=== PATIENT | male | born 1955 | race Caucasian/White ===

== ENCOUNTER → 2016-06-19 | Outpatient (CLI) | payer OTHER ==
[~2016-06-19] MED LIST: ADVAIR DISKUS 21 DSK INH; ALBUTEROL0.09 MG/A2 INH; LEVOFLOXACIN500 MG PO; LISINOPRIL5 MG PO; MEDROL DOSEPAK4 MG PO; PREDNISONE20 M1 PO; PRILOSEC40 MG PO; THIORIDAZINE H100 MG PO; VICODIN 5/500 505 MG PO; VISTARIL25 MG PO; XANAX0.5 MG PO; XANAX1 MG PO; ZITHROMAX250 MG PO; ZOLOFT50 MG PO
== END | disposition home or self-care (01) ==
LOC: US 17:45
DX: N32.89 Other specified disorders of bladder (principal)

== ENCOUNTER 2016-08-22 14:16 | Emergency (ER) | payer OTHER ==
[~2016-08-22] VITALS: Ht 165.1 cm; Wt 67.1 kg
[2016-08-22] MEDS ORDERED: COREG6.25 MG PO (14:23)
[2016-08-22 14:40] VITALS: BP 112/68
[2016-08-22 15:06] LABS: BASO # 0.1 10*3/uL (0.0-0.1); BASO % 0.6 % (0.0-1.0); EOS # 0.4 10*3/uL (0.0-0.4); EOS % 4.4 % (1.0-4.0); HEMATOCRIT 30.5 % (42.0-52.0); HEMOGLOBIN 9.9 g/dl (14.0-18.0); LYMPH # 1.8 10*3/uL (1.3-4.4); LYMPH % 20.6 % (27.0-41.0); MEAN CELL VOLUME 90.2 fl (80.0-94.0); MEAN CORPUSCULAR HGB 29.3 pg (27.0-31.0); MEAN CORPUSCULAR HGB CONC 32.5 g/dl (33.0-37.0); MEAN PLATELET VOLUME 8.9 fl (9.6-12.3); MONO # 0.9 10*3/uL (0.1-1.0); MONO % 10.2 % (3.0-9.0); NEUT # 5.5 10*3/uL (2.3-7.9); NEUT % 63.8 % (47.0-73.0); PLATELET COUNT AUTOMATED 488 10*3/uL (130-400); RED BLOOD COUNT 3.38 10*6/uL (4.50-5.90); RED CELL DISTRI WIDTH 13.6 % (0-14.5); WHITE BLOOD COUNT 8.6 10*3/uL (4.8-10.8)
[2016-08-22 15:13] LABS: ALBUMIN 2.7 gm/dl (3.1-4.5); ALKALINE PHOSPHATASE 71 U/L (45-117); BILIRUBIN, TOTAL 0.3 mg/dl (0.2-1.0); BUN 12 mg/dl (7-24); CARBON DIOXIDE 27 mmol/L (21-32); CHLORIDE 106 mmol/L (98-107); EST GLOM FILT AFRICAN AMERICAN > 60 ml/min; GLUCOSE 101 mg/dL (65-99); POTASSIUM 3.9 mmol/L (3.5-5.1); SGOT/AST 19 IU/L (3-35); SGPT/ALT 44 U/L (12-78); SODIUM 141 mmol/L (136-145); TOTAL PROTEIN 6.2 gm/dL (6.4-8.2)
[2016-08-22] MEDS ORDERED: CEPHALEXIN500 M1 PO (15:46)
[2016-08-22] MEDS ORDERED: NORCO 5-325 TA1 EACH PO (15:46)
== END 2016-08-22 15:52 | disposition home or self-care (01) ==
LOC: ED 14:16
PROVIDERS: Nurse Practitioner Family
DX: G89.18 Other acute postprocedural pain (principal); F17.200 Nicotine dependence, unspecified, uncomplicated; Z79.899 Other long term (current) drug therapy

== ENCOUNTER 2016-10-10 09:13 | Emergency (ER) | payer OTHER ==
[~2016-10-10] VITALS: Ht 180.3 cm; Wt 95.3 kg
[~2016-10-10 09:13] MED LIST changes: +CEPHALEXIN500 M1 PO; +COREG6.25 MG PO; +NORCO 5-325 TA1 EACH PO
[2016-10-10 09:20] VITALS: BP 150/103
[2016-10-10] MEDS ORDERED: NAPROSYN500 MG PO (11:10)
[2016-10-10] MEDS ORDERED: PREDNISONE20 M1 PO (11:10)
[2016-10-10] MEDS ORDERED: PROVENTIL0.09 MG/A1 INH (11:10)
[2016-10-10] MEDS ORDERED: VIBRAMYCIN100 MG PO (11:10)
== END 2016-10-10 11:17 | disposition home or self-care (01) ==
LOC: ED 09:13
DX: J40 Bronchitis, not specified as acute or chronic (principal); R09.1 Pleurisy; J44.9 Chronic obstructive pulmonary disease, unspecified

== ENCOUNTER 2016-12-16 16:52 | Emergency (ER) | payer OTHER ==
[~2016-12-16] VITALS: Wt 81.2 kg
[~2016-12-16 16:52] MED LIST changes: +NAPROSYN500 MG PO; +PROVENTIL0.09 MG/A1 INH; +VIBRAMYCIN100 MG PO
[2016-12-16 17:22] VITALS: BP 114/56
[2016-12-16] MEDS ORDERED: XARE20MG PO (17:23)
[2016-12-16] MEDS ORDERED: ATORVASTATIN CA10 M1 PO (17:24)
[2016-12-16 17:40] LABS: BILIRUBIN NEGATIVE (NEGATIVE); BLOOD NEGATIVE (NEGATIVE); CLARITY CLEAR (CLEAR); COLOR YELLOW (YELLOW); GLUCOSE NEGATIVE (NEGATIVE); KETONE TRACE (NEGATIVE); LEUKO ESTERASE NEGATIVE (NEGATIVE); NITRITE NEGATIVE (NEGATIVE); PH 5.5 (5.0-9.0); SPECIFIC GRAVITY 1.025 (1.005-1.030); UROBILINOGEN 0.2 E.U./dl (0.2-1.0)
[2016-12-16 17:53] LABS: RBC 0-2 rbc/hpf (0-2); WBC 0-2 wbc/hpf (0-5)
[2016-12-16 17:53] LABS: BASO % 0.4 % (0.0-1.0); EOS # 0.4 10*3/uL (0.0-0.4); EOS % 5.7 % (1.0-4.0); HEMOGLOBIN 13.1 g/dl (14.0-18.0); LYMPH % 27.1 % (27.0-41.0); MEAN CELL VOLUME 89.9 fl (80.0-94.0); MEAN CORPUSCULAR HGB 29.4 pg (27.0-31.0); MEAN CORPUSCULAR HGB CONC 32.8 g/dl (33.0-37.0); MEAN PLATELET VOLUME 9.4 fl (9.6-12.3); MONO % 13.2 % (3.0-9.0); NEUT # 3.9 10*3/uL (2.3-7.9); NEUT % 53.3 % (47.0-73.0); PLATELET COUNT AUTOMATED 277 10*3/uL (130-400); RED BLOOD COUNT 4.45 10*6/uL (4.50-5.90); RED CELL DISTRI WIDTH 13.9 % (0-14.5); WHITE BLOOD COUNT 7.3 10*3/uL (4.8-10.8)
[2016-12-16 18:12] LABS: ALBUMIN 3.5 gm/dl (3.1-4.5); ALKALINE PHOSPHATASE 97 U/L (45-117); BUN 15 mg/dl (7-24); CHLORIDE 107 mmol/L (98-107); CREATININE 1.45 mg/dL (0.70-1.30); POTASSIUM 3.7 mmol/L (3.5-5.1); SGOT/AST 25 IU/L (3-35); SGPT/ALT 49 U/L (12-78); SODIUM 140 mmol/L (136-145); TOTAL PROTEIN 6.9 gm/dL (6.4-8.2)
[2016-12-16 19:19] LABS: URINE AMPHETAMINES < 1000 (1000ng/ml); URINE BARBITURATES < 200 (200ng/ml); URINE BENZODIAZEPINES < 200 (200ng/ml); URINE CANNABINOIDS (THC) < 50 (50ng/ml); URINE COCAINE < 300 (300ng/ml); URINE METHADONE < 300 (300ng/ml); URINE OPIATES < 300 (300ng/ml)
[2016-12-16 19:23] LABS: URINE PHENCYCLIDINE < 25 (25ng/ml)
== END 2016-12-16 19:33 | disposition home or self-care (01) ==
LOC: ED 16:52
PROVIDERS: Emergency Medicine; Student in an Organized Health Care Education/Training Program
DX: M54.5 Low back pain (principal); R10.30 Lower abdominal pain, unspecified; F14.10 Cocaine abuse, uncomplicated; Z98.890 Other specified postprocedural states; Z79.899 Other long term (current) drug therapy

== ENCOUNTER 2017-01-23 11:19 | Emergency (ER) | payer OTHER ==
[~2017-01-23] VITALS: Ht 187.9 cm; Wt 81.6 kg
[~2017-01-23 11:19] MED LIST changes: +ATORVASTATIN CA10 M1 PO; +XARE20MG PO
[2017-01-23 11:26] VITALS: BP 173/92
[2017-01-23] MEDS ORDERED: Wellbutrin Sr100 MG PO (12:05)
== END 2017-01-23 12:10 | disposition home or self-care (01) ==
LOC: ED 11:19
DX: R03.0 Elevated blood-pressure reading, without diagnosis of hypertension (principal); F17.200 Nicotine dependence, unspecified, uncomplicated; Z79.899 Other long term (current) drug therapy

== ENCOUNTER 2017-05-26 15:06 | Emergency (ER) | payer OTHER ==
[~2017-05-26] VITALS: Ht 182.8 cm; Wt 77.1 kg
[~2017-05-26 15:06] MED LIST changes: +Wellbutrin Sr100 MG PO
[2017-05-26 15:29] VITALS: BP 138/86
== END 2017-05-26 15:58 | disposition home or self-care (01) ==
LOC: ED 15:06
PROVIDERS: Physician Assistant
DX: Z51.81 Encounter for therapeutic drug level monitoring (principal); Z79.899 Other long term (current) drug therapy

== ENCOUNTER 2017-05-31 14:14 | Emergency (ER) | payer OTHER ==
[~2017-05-31] VITALS: Ht 180.3 cm; Wt 90.7 kg
[2017-05-31 15:01] LABS: BASO % 0.3 % (0.0-1.0); EOS # 0.2 10*3/uL (0.0-0.4); EOS % 2.8 % (1.0-4.0); HEMATOCRIT 41.9 % (42.0-52.0); HEMOGLOBIN 14.2 g/dl (14.0-18.0); LYMPH # 1.8 10*3/uL (1.3-4.4); LYMPH % 28.7 % (27.0-41.0); MEAN CELL VOLUME 89.3 fl (80.0-94.0); MEAN CORPUSCULAR HGB 30.3 pg (27.0-31.0); MEAN CORPUSCULAR HGB CONC 33.9 g/dl (33.0-37.0); MEAN PLATELET VOLUME 9.5 fl (9.6-12.3); MONO % 15.5 % (3.0-9.0); NEUT # 3.2 10*3/uL (2.3-7.9); NEUT % 52.5 % (47.0-73.0); PLATELET COUNT AUTOMATED 264 10*3/uL (130-400); RED BLOOD COUNT 4.69 10*6/uL (4.50-5.90); RED CELL DISTRI WIDTH 14.5 % (0-14.5); WHITE BLOOD COUNT 6.1 10*3/uL (4.8-10.8)
[2017-05-31 15:05] VITALS: BP 154/95
[2017-05-31 15:11] LABS: ACT PARTIAL THROMBO TIME 26.3 SECONDS (20.8-31.5)
[2017-05-31 15:15] LABS: ALBUMIN 3.8 gm/dl (3.1-4.5); ALKALINE PHOSPHATASE 113 U/L (45-117); BUN 20 mg/dl (7-24); CHLORIDE 107 mmol/L (98-107); CREATININE 1.37 mg/dL (0.70-1.30); SGOT/AST 23 IU/L (3-35); SGPT/ALT 43 U/L (12-78); SODIUM 139 mmol/L (136-145); TOTAL PROTEIN 7.5 gm/dL (6.4-8.2)
[2017-05-31] MEDS ORDERED: TESSALON PERLE100 MG PO (16:24)
== END 2017-05-31 16:27 | disposition home or self-care (01) ==
LOC: ED 14:14
PROVIDERS: Emergency Medicine
DX: R07.89 Other chest pain (principal); F41.9 Anxiety disorder, unspecified; I10 Essential (primary) hypertension; J44.9 Chronic obstructive pulmonary disease, unspecified; F14.10 Cocaine abuse, uncomplicated; Z98.890 Other specified postprocedural states; Z79.899 Other long term (current) drug therapy

== ENCOUNTER 2017-07-29 10:57 | Emergency (ER) | payer OTHER ==
[~2017-07-29] VITALS: Ht 187.9 cm; Wt 85.7 kg
[2017-07-29 10:57] VITALS: BP 147/94
[~2017-07-29 10:57] MED LIST changes: +TESSALON PERLE100 MG PO
[2017-07-29] MEDS ORDERED: NEURONTIN100 MG PO (12:33)
[2017-07-29] MEDS ORDERED: VALTREX1000 MG PO (12:33)
== END 2017-07-29 13:10 | disposition home or self-care (01) ==
LOC: ED 10:57
DX: B02.30 Zoster ocular disease, unspecified (principal); Z79.899 Other long term (current) drug therapy; Z98.890 Other specified postprocedural states

== ENCOUNTER 2017-08-01 11:24 | Emergency (ER) | payer OTHER ==
[~2017-08-01 11:24] MED LIST changes: +NEURONTIN100 MG PO; +VALTREX1000 MG PO
[2017-08-01 11:28] VITALS: BP 115/71
== END 2017-08-01 12:04 | disposition home or self-care (01) ==
LOC: ED 11:24
DX: B02.30 Zoster ocular disease, unspecified (principal); J44.1 Chronic obstructive pulmonary disease with (acute) exacerbation; F41.9 Anxiety disorder, unspecified; F17.200 Nicotine dependence, unspecified, uncomplicated; Z79.899 Other long term (current) drug therapy

== ENCOUNTER 2017-09-10 21:35 | Emergency (ER) | payer OTHER ==
[~2017-09-10] VITALS: Ht 185.4 cm; Wt 81.6 kg
[2017-09-10 21:38] VITALS: BP 143/97
[2017-09-10] MEDS ORDERED: XARE20MG PO (22:22)
[2017-09-10] MEDS ORDERED: LISINOPRIL2.5 MG PO (22:22)
[2017-09-10] MEDS ORDERED: PREDNISONE20 M1 PO (22:22)
== END 2017-09-10 22:55 | disposition home or self-care (01) ==
LOC: ED 21:35
DX: J44.1 Chronic obstructive pulmonary disease with (acute) exacerbation (principal); F17.200 Nicotine dependence, unspecified, uncomplicated; Z76.0 Encounter for issue of repeat prescription; Z79.899 Other long term (current) drug therapy; Z98.890 Other specified postprocedural states; Z79.01 Long term (current) use of anticoagulants

== ENCOUNTER 2017-10-31 11:07 | Emergency (ER) | payer OTHER ==
[~2017-10-31] VITALS: Ht 172.7 cm; Wt 95.3 kg
[~2017-10-31 11:07] MED LIST changes: +LISINOPRIL2.5 MG PO
[2017-10-31] MEDS ORDERED: NAPROSYN500 MG PO (11:21)
[2017-10-31 12:26] VITALS: BP 132/74
== END 2017-10-31 12:37 | disposition home or self-care (01) ==
LOC: ED 11:07
DX: G89.29 Other chronic pain (principal); M25.562 Pain in left knee; R03.0 Elevated blood-pressure reading, without diagnosis of hypertension; Z79.899 Other long term (current) drug therapy; Z98.890 Other specified postprocedural states

== ENCOUNTER 2017-11-30 12:12 | Emergency (ER) | payer OTHER ==
[~2017-11-30] VITALS: Ht 187.9 cm; Wt 83.9 kg
[~2017-11-30 12:12] MED LIST changes: +BUPROPION HCL150 M3 PO; +PROVENTIL HFA6.7 GM PO; +VENTOLIN 02.5 MG/3 M INH; +XARELTO20 M1 PO
[2017-11-30 12:15] VITALS: BP 112/78
[2017-11-30] MEDS ORDERED: PREDNISONE10 MG PO (12:49)
[2017-11-30] MEDS ORDERED: ROBITUSSIN5 ML PO (12:49)
[2017-11-30] MEDS ORDERED: FLONASE ALLERG9.9 ML NAS (12:49)
[2017-11-30] MEDS ORDERED: CLARITIN10 MG PO (12:49)
[2017-11-30 12:55] LABS: BASO % 0.4 % (0.0-1.0); EOS # 0.4 10*3/uL (0.0-0.4); EOS % 4.1 % (1.0-4.0); HEMATOCRIT 43.6 % (42.0-52.0); HEMOGLOBIN 14.6 g/dl (14.0-18.0); LYMPH # 1.2 10*3/uL (1.3-4.4); LYMPH % 13.6 % (27.0-41.0); MEAN CELL VOLUME 88.6 fl (80.0-94.0); MEAN CORPUSCULAR HGB 29.7 pg (27.0-31.0); MEAN CORPUSCULAR HGB CONC 33.5 g/dl (33.0-37.0); MEAN PLATELET VOLUME 9.5 fl (9.6-12.3); MONO # 0.9 10*3/uL (0.1-1.0); MONO % 10.4 % (3.0-9.0); NEUT # 6.1 10*3/uL (2.3-7.9); NEUT % 71.1 % (47.0-73.0); PLATELET COUNT AUTOMATED 253 10*3/uL (130-400); RED BLOOD COUNT 4.92 10*6/uL (4.50-5.90); RED CELL DISTRI WIDTH 13.7 % (0-14.5); WHITE BLOOD COUNT 8.5 10*3/uL (4.8-10.8)
[2017-11-30 13:12] LABS: ALBUMIN 3.6 gm/dl (3.1-4.5); CREATININE 1.48 mg/dL (0.70-1.30); POTASSIUM 4.1 mmol/L (3.5-5.1); TOTAL PROTEIN 7.3 gm/dL (6.4-8.2)
[2017-12-04] MEDS ORDERED: CYCLOBENZAPRINE10 MG PO (20:28)
[2017-12-04] MEDS ORDERED: NAPROSYN500 MG PO (20:28)
== END 2017-11-30 13:30 | disposition home or self-care (01) ==
LOC: ED 12:12
PROVIDERS: Nurse Practitioner Family
DX: J20.9 Acute bronchitis, unspecified (principal); E11.22 Type 2 diabetes mellitus with diabetic chronic kidney disease; I12.9 Hypertensive chronic kidney disease with stage 1 through stage 4 chronic kidney disease, or unspecified chronic kidney disease; N18.3 Chronic kidney disease, stage 3 (moderate); E78.5 Hyperlipidemia, unspecified; J44.9 Chronic obstructive pulmonary disease, unspecified; F17.200 Nicotine dependence, unspecified, uncomplicated; Z79.899 Other long term (current) drug therapy

== ENCOUNTER 2018-01-06 18:47 | Emergency (ER) | payer OTHER ==
[~2018-01-06] VITALS: Ht 185.4 cm; Wt 82.6 kg
[~2018-01-06 18:47] MED LIST changes: +CLARITIN10 MG PO; +CYCLOBENZAPRINE10 MG PO; +FLONASE ALLERG9.9 ML NAS; +PREDNISONE10 MG PO; +ROBITUSSIN5 ML PO
[2018-01-06 18:48] VITALS: BP 146/85
== END 2018-01-06 19:11 | disposition home or self-care (01) ==
LOC: ED 18:47
DX: D68.8 Other specified coagulation defects (principal); Z76.0 Encounter for issue of repeat prescription; Z79.899 Other long term (current) drug therapy

== ENCOUNTER 2018-04-26 19:57 | Emergency (ER) | payer OTHER ==
[~2018-04-26] VITALS: Ht 187.9 cm; Wt 81.6 kg
--- NOTE | ~2018-04-26 | EKG ---
[place], [place] ELECTROCARDIOGRAM REPORT NAME: LUH CONWAY UNIT #: [id number] ROOM: DOCTOR: EPIPHANY DRAFT REPORT BIRTHDATE: [birth year] [facility] Test Date: 2018-04-26 Test Time: 21:04:21 Pat Name: LUH CONWAY Department: Room: Gender: M Head Of Strategy: Yasmine Pierce : 1955 Requested By: OUSMANE DENNY Order Number: [id number] Reading MD: Min Peter MD Measurements Intervals [place] Rate: 69 P: 77 DE: 138 QRS: 76 QRSD: 85 T: 66 QT: 415 QTc: 445 Interpretive Statements Sinus rhythm Baseline wander in lead(s) V6 Compared to ECG 11/09/2017 01:45:58 No significant changes Electronically Signed On 04-28-2018 8:21:42 PST by iMn Peter MD CM:EKGRPT:ELECTROCARDIOGRAM REPORT 03 0821 OUSMANE GONSALES DRAFT REPORT OUSMANE DENNY DO
[2018-04-26 20:46] LABS: BASO % 0.5 % (0.0-1.0); EOS # 0.4 10*3/uL (0.0-0.4); EOS % 4.9 % (1.0-4.0); HEMATOCRIT 41.9 % (42.0-52.0); HEMOGLOBIN 14.2 g/dl (14.0-18.0); LYMPH # 2.4 10*3/uL (1.3-4.4); LYMPH % 29.1 % (27.0-41.0); MEAN CELL VOLUME 90.1 fl (80.0-94.0); MEAN CORPUSCULAR HGB 30.5 pg (27.0-31.0); MEAN CORPUSCULAR HGB CONC 33.9 g/dl (33.0-37.0); MEAN PLATELET VOLUME 9.7 fl (9.6-12.3); MONO # 0.9 10*3/uL (0.1-1.0); MONO % 11.6 % (3.0-9.0); NEUT # 4.4 10*3/uL (2.3-7.9); NEUT % 53.8 % (47.0-73.0); PLATELET COUNT AUTOMATED 289 10*3/uL (130-400); RED BLOOD COUNT 4.65 10*6/uL (4.50-5.90); RED CELL DISTRI WIDTH 13.6 % (0-14.5); WHITE BLOOD COUNT 8.1 10*3/uL (4.8-10.8)
[2018-04-26 21:08] LABS: ALBUMIN 3.6 gm/dl (3.1-4.5); ALKALINE PHOSPHATASE 106 U/L (45-117); BUN 19 mg/dl (7-24); CHLORIDE 108 mmol/L (98-107); CREATININE 1.35 mg/dL (0.70-1.30); POTASSIUM 3.8 mmol/L (3.5-5.1); SGOT/AST 21 IU/L (3-35); SGPT/ALT 38 U/L (12-78); SODIUM 141 mmol/L (136-145); TOTAL PROTEIN 7.3 gm/dL (6.4-8.2)
[2018-04-26 21:10] LABS: TROPONIN I < 0.015 ng/ml (<0.045)
[2018-04-26 22:02] LABS: BILIRUBIN NEGATIVE (NEGATIVE); BLOOD NEGATIVE (NEGATIVE); CLARITY CLEAR (CLEAR); COLOR YELLOW (YELLOW); GLUCOSE NEGATIVE (NEGATIVE); KETONE NEGATIVE (NEGATIVE); LEUKO ESTERASE NEGATIVE (NEGATIVE); NITRITE NEGATIVE (NEGATIVE); SPECIFIC GRAVITY <= 1.005 (1.005-1.030); UROBILINOGEN 0.2 E.U./dl (0.2-1.0)
[2018-04-26 22:17] LABS: RBC 0-2 rbc/hpf (0-2)
[2018-04-26 22:18] LABS: BACTERIA TRACE; EPITHELIAL CELLS 0-2; WBC 0-2 wbc/hpf (0-5)
[2018-04-26 22:59] VITALS: BP 148/86
[2018-09-15] MEDS ORDERED: FINASTERIDE5 M1 PO (22:45)
[2018-09-15] MEDS ORDERED: TAMSULOSIN HCL0.4 MG PO (22:50)
[2018-09-15] MEDS ORDERED: LOSARTAN POTASS25 M1 PO (22:52)
[2018-09-15] MEDS ORDERED: WELLBUTRIN XL300 MG PO (22:53)
[2018-09-15] MEDS ORDERED: Percocet 325 MG1 TAB PO (22:59)
[2018-09-15] MEDS ORDERED: OXYBUTYNIN5 MG PO (23:02)
[2018-09-15] MEDS ORDERED: PACERONE200 MG PO (23:03)
[2018-09-15] MEDS ORDERED: 'XANAX1 MG PO (23:04)
[2018-09-17] MEDS ORDERED: MUCINEX ER600 MG PO (12:04)
[2018-09-17] MEDS ORDERED: PREDNISONE10 MG PO (12:04)
[2018-09-17] MEDS ORDERED: LEVOFLOXACIN500 MG PO (12:04)
[2018-09-17] MEDS ORDERED: NICODERM T (13:32)
[2018-09-18] MEDS ORDERED: PREDNISONE20 M1 PO (08:58)
== END 2018-04-26 23:08 | disposition left against medical advice (07) ==
LOC: ED 19:57
PROVIDERS: Emergency Medicine
DX: G45.9 Transient cerebral ischemic attack, unspecified (principal); E11.22 Type 2 diabetes mellitus with diabetic chronic kidney disease; I12.9 Hypertensive chronic kidney disease with stage 1 through stage 4 chronic kidney disease, or unspecified chronic kidney disease; N18.3 Chronic kidney disease, stage 3 (moderate); J44.9 Chronic obstructive pulmonary disease, unspecified; E78.1 Pure hyperglyceridemia; F17.210 Nicotine dependence, cigarettes, uncomplicated; Z86.73 Personal history of transient ischemic attack (TIA), and cerebral infarction without residual deficits; Z79.899 Other long term (current) drug therapy

== ENCOUNTER → 2018-07-16 | Outpatient (CLI) | payer OTHER ==
[~2018-07-16] MED LIST changes: +'XANAX1 MG PO; +AUGMENTIN 875-875 MG PO; +BREO ELLIPTA 21 EACH INH; +DOXYCYCLINE100 MG PO; +FINASTERIDE5 M1 PO; +Ipratropium Brom3 ML NEB; +LOSARTAN POTAS100 M1 PO; +LOSARTAN POTASS25 M1 PO; +MINIPRESS1 MG PO; +MUCINEX ER600 MG PO; +NICODERM T; +OXYBUTYNIN5 MG PO; +PACERONE200 MG PO; +Percocet 325 MG1 TAB PO; +TAMSULOSIN HCL0.4 MG PO; +TESSALON PERLE100 M1 PO; +TRAZODONE50 MG PO; +WELLBUTRIN XL300 MG PO
== END | disposition home or self-care (01) ==
LOC: NM 09:52
DX: J43.9 Emphysema, unspecified (principal); C61 Malignant neoplasm of prostate; M17.12 Unilateral primary osteoarthritis, left knee; I10 Essential (primary) hypertension; F17.200 Nicotine dependence, unspecified, uncomplicated

== ENCOUNTER 2018-09-14 20:19 | Emergency (ER) | payer OTHER ==
[~2018-09-14] VITALS: Ht 185.4 cm; Wt 81.6 kg
[~2018-09-14 20:19] MED LIST changes: -'XANAX1 MG PO; -AUGMENTIN 875-875 MG PO; -BREO ELLIPTA 21 EACH INH; -DOXYCYCLINE100 MG PO; -FINASTERIDE5 M1 PO; -Ipratropium Brom3 ML NEB; -LOSARTAN POTAS100 M1 PO; -LOSARTAN POTASS25 M1 PO; -MINIPRESS1 MG PO; -MUCINEX ER600 MG PO; -NICODERM T; -OXYBUTYNIN5 MG PO; -PACERONE200 MG PO; -Percocet 325 MG1 TAB PO; -TAMSULOSIN HCL0.4 MG PO; -TESSALON PERLE100 M1 PO; -TRAZODONE50 MG PO; -WELLBUTRIN XL300 MG PO
[2018-09-14 20:20] VITALS: BP 118/69
[2018-09-15] MEDS ORDERED: FINASTERIDE5 M1 PO (22:45)
[2018-09-15] MEDS ORDERED: TAMSULOSIN HCL0.4 MG PO (22:50)
[2018-09-15] MEDS ORDERED: LOSARTAN POTASS25 M1 PO (22:52)
[2018-09-15] MEDS ORDERED: WELLBUTRIN XL300 MG PO (22:53)
[2018-09-15] MEDS ORDERED: Percocet 325 MG1 TAB PO (22:59)
[2018-09-15] MEDS ORDERED: OXYBUTYNIN5 MG PO (23:02)
[2018-09-15] MEDS ORDERED: PACERONE200 MG PO (23:03)
[2018-09-15] MEDS ORDERED: 'XANAX1 MG PO (23:04)
[2018-09-17] MEDS ORDERED: MUCINEX ER600 MG PO (12:04)
[2018-09-17] MEDS ORDERED: PREDNISONE10 MG PO (12:04)
[2018-09-17] MEDS ORDERED: LEVOFLOXACIN500 MG PO (12:04)
[2018-09-17] MEDS ORDERED: NICODERM T (13:32)
[2018-09-18] MEDS ORDERED: PREDNISONE20 M1 PO (08:58)
== END 2018-09-14 20:45 | disposition home or self-care (01) ==
LOC: ED 20:19
DX: T83.038A Leakage of other urinary catheter, initial encounter (principal); Z79.899 Other long term (current) drug therapy; Y84.6 Urinary catheterization as the cause of abnormal reaction of the patient, or of later complication, without mention of misadventure at the time of the procedure; Y92.89 Other specified places as the place of occurrence of the external cause

== ENCOUNTER 2018-10-17 10:35 | Inpatient (IN) | payer OTHER ==
[~2018-10-17] VITALS: Ht 185.4 cm; Wt 83.5 kg
[2018-10-17] VITALS (7 sets, daily range): BP systolic 106–133; BP diastolic 59–78
--- NOTE | ~2018-10-17 | EKG ---
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
--- NOTE | ~2018-10-17 | EKG ---
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
--- NOTE | ~2018-10-17 | EKG ---
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
[~2018-10-17 10:35] MED LIST changes: +'XANAX1 MG PO; +FINASTERIDE5 M1 PO; +LOSARTAN POTASS25 M1 PO; +MUCINEX ER600 MG PO; +NICODERM T; +OXYBUTYNIN5 MG PO; +PACERONE200 MG PO; +Percocet 325 MG1 TAB PO; +TAMSULOSIN HCL0.4 MG PO; +WELLBUTRIN XL300 MG PO
[2018-10-17 10:53] LABS: BASO % 0.3 % (0.0-1.0); EOS # 0.1 10*3/uL (0.0-0.4); EOS % 0.8 % (1.0-4.0); HEMATOCRIT 39.6 % (42.0-52.0); HEMOGLOBIN 13.1 g/dl (14.0-18.0); LYMPH # 1.3 10*3/uL (1.3-4.4); LYMPH % 11.7 % (27.0-41.0); MEAN CELL VOLUME 91.7 fl (80.0-94.0); MEAN CORPUSCULAR HGB 30.3 pg (27.0-31.0); MEAN CORPUSCULAR HGB CONC 33.1 g/dl (33.0-37.0); MEAN PLATELET VOLUME 9.6 fl (9.6-12.3); MONO # 0.8 10*3/uL (0.1-1.0); MONO % 6.8 % (3.0-9.0); NEUT # 8.9 10*3/uL (2.3-7.9); NEUT % 80.1 % (47.0-73.0); PLATELET COUNT AUTOMATED 270 10*3/uL (130-400); RED BLOOD COUNT 4.32 10*6/uL (4.50-5.90); RED CELL DISTRI WIDTH 13.9 % (0-14.5); WHITE BLOOD COUNT 11.1 10*3/uL (4.8-10.8)
[2018-10-17 11:06] LABS: ACT PARTIAL THROMBO TIME 30.6 SECONDS (20.0-32.1)
[2018-10-17 11:09] LABS: ALBUMIN 3.5 gm/dl (3.1-4.5); ALKALINE PHOSPHATASE 100 U/L (45-117); BUN 14 mg/dl (7-24); CHLORIDE 109 mmol/L (98-107); CREATININE 1.38 mg/dL (0.70-1.30); POTASSIUM 3.9 mmol/L (3.5-5.1); SGOT/AST 25 IU/L (3-35); SGPT/ALT 34 U/L (12-78); SODIUM 138 mmol/L (136-145); TOTAL PROTEIN 7.1 gm/dL (6.4-8.2)
[2018-10-17 11:10] LABS: TROPONIN I < 0.015 ng/ml (<0.045)
--- NOTE | 2018-10-17 11:40 | NUR ---
ATTEMPTED TO CALL PT;S WIFR PER PT REQUEST @ [phone],NO ANSWER AND PT NOTIFIED.
--- NOTE | 2018-10-17 13:33 | NUR ---
A 63, admitted to , under the services of MARIAH Houser MD with a diagnosis of COPD EXACERBATION. Chief complaint is SOB. Patient arrived via bed from ER. Monitor applied. Initial assessment completed. Vital signs taken and recorded. MARIAH HOUSER MD notified of admission to the unit. Orders received. See assessment for past medical history, medications and allergies. Patient and/or family oriented to unit. [facility] visitation policy reviewed. Clothing/patient valuable form completed. LISSA HAMMOND
[2018-10-17] MEDS ORDERED: MINIPRESS1 MG PO (13:43)
--- NOTE | 2018-10-17 19:39 | NUR ---
24 HR chart check completed.
--- NOTE | 2018-10-17 21:00 | NUR ---
RESTING IN BED TALKING ON PHONE. RESPIRATIONS EASY. LUNGS DIMINISHED WITH COARSE EXP WHEEZES. HARSH NON-PROD COUGH NOTED. CALL LIGHT WITHIN REACH. NO VOICED COMPLAINTS
--- NOTE | 2018-10-17 21:30 | NUR ---
ROUTINE ATIVAN ADMINISTERED TO ASSIST WITH ANXIETY
[2018-10-18] VITALS: BP 114/67
--- NOTE | 2018-10-18 | NUR ---
SLEEPING. NO S/S DISTRESS. RESPIRATIONS EASY. VSS. CALL LIGHT WITHIN REACH
--- NOTE | 2018-10-18 06:00 | NUR ---
slept throughout night with no distress noted. respirations easy. call light within reach. no voiced complaints this shift
[2018-10-18 06:25] LABS: HEMATOCRIT 37.6 % (42.0-52.0); HEMOGLOBIN 12.6 g/dl (14.0-18.0); MEAN CELL VOLUME 90.4 fl (80.0-94.0); MEAN CORPUSCULAR HGB 30.3 pg (27.0-31.0); MEAN CORPUSCULAR HGB CONC 33.5 g/dl (33.0-37.0); MEAN PLATELET VOLUME 10.1 fl (9.6-12.3); PLATELET COUNT AUTOMATED 261 10*3/uL (130-400); RED BLOOD COUNT 4.16 10*6/uL (4.50-5.90); RED CELL DISTRI WIDTH 13.9 % (0-14.5); WHITE BLOOD COUNT 15.8 10*3/uL (4.8-10.8)
[2018-10-18 06:52] LABS: ALKALINE PHOSPHATASE 110 U/L (45-117); CHLORIDE 111 mmol/L (98-107); CREATININE 1.43 mg/dL (0.70-1.30); POTASSIUM 3.5 mmol/L (3.5-5.1); SGOT/AST 15 IU/L (3-35); SGPT/ALT 27 U/L (12-78); SODIUM 143 mmol/L (136-145); TOTAL PROTEIN 6.6 gm/dL (6.4-8.2)
[2018-10-18 06:56] LABS: PLASMA CELL 1 % (0-0); PLATELET SUFFICIENCY NORMAL (NORMAL); SCHISTOCYTES FEW; TOTAL CELLS COUNTED 100 #CELLS
[2018-10-18 06:58] LABS: BUN 25 mg/dl (7-24)
[2018-10-18 08:00] VITALS: BP 104/64
--- NOTE | 2018-10-18 08:00 | NUR ---
PT RESTING IN BED. NO DISTRESS NOTED. WILL MONITOR
--- NOTE | 2018-10-18 08:41 | NUR ---
CURTAIN DRIER spoke with patient about notation of him being "kicked out of sisters house". The patient stated he is now living with his other sister Radha, in [place]. He stated he was able to obtain some of his medicine. His sister Radha called in while CURTAIN DRIER was speaking to patient. Patient asked for CURTAIN DRIER to speak with her. She stated their sister "sold" some of the medicine but is not sure which ones. The patient is concerned about transportation upon release from hospital. The patient stated his sister Radha does not drive. His friends all work. He stated he has no means of income until the of the month. CURTAIN DRIER will inform patient to contact his insurance for ride upon discharge. Patient also stated that his new Pharmacy is [facility] in [place]. -ZAHEER Villar
--- NOTE | 2018-10-18 09:00 | NUR ---
Welder/Installer in to talk to patient. Patient states lives at home with his sister. There are 3 steps in the home. Physician: Dr. Khanh Dejesus [facility]acy: [facility] in [place] Home health services: none Patient's level of ADLs: INDEPENDENT Patient has working utilities: yes DME: nebulizer Follow-up physician's appointment after d/c: he prefers to make his own follow up appt after discharge Does patient want to access PORTAL?: no Discharge plan discussed with patient. He lives at home with his sister. He is independent in his ADLs and ambulation. Discussed home health care services and he denies any home needs at this time. When medically stable he will be discharged to home. His insurance will transport on discharge. TOM HICKMAN
[2018-10-18 12:00] VITALS: BP 110/58
[2018-10-18] MEDS ORDERED: PREDNISONE10 MG PO (12:58)
[2018-10-18] MEDS ORDERED: DOXYCYCLINE100 MG PO (12:58)
--- NOTE | 2018-10-18 14:28 | NUR ---
ZAHEER received message to talk to the patient. The patient was speaking with the insurance company about providing a ride home upon discharge. The insurance stated they require at 24/48 hr notice. ZAHEER was speaking with the insurance adviser, the RN, Alisha, came into the room stated the patient would need to stay until tomorrow. She gave an approximate discharge time of 2:00pm. This was relayed to the insurance adviser. She stated they would have a cherry picker operator time of 2:30. The provider will be contacting the ROUSTABOUT CREW LEADER to confirm the arrangement. -ZAHEER Villar
[2018-10-18 16:00] VITALS: BP 109/64
--- NOTE | 2018-10-18 19:52 | NUR ---
24 HR chart check completed.
[2018-10-18 20:00] VITALS: BP 139/67
--- NOTE | 2018-10-18 20:30 | NUR ---
RESTING IN BED WITH NO DISTRESS NOTED. RESPIRATIONS EASY. LUNGS DIMINISHED WITH EXP WHEEZES. PULSE OX 97% RA. HARSH NON-PRODUCTIVE COUGH. C/O URINARY FREQUENCY, NORM FOR PATIENT. IV FLUIDS INFUSING PER ORDER. CALL LIGHT WITHIN REACH. NO VOICED COMPLAINTS
[2018-10-19] VITALS: BP 125/62
--- NOTE | 2018-10-19 | NUR ---
SLEEPING. NO DISTRESS NOTED. RESPIRATIONS EASY. VSS. IV FLUIDS MAINTAINED. CALL LIGHT WITHIN REACH
--- NOTE | 2018-10-19 06:00 | NUR ---
SLEPT THROUGHOUT NIGHT WITH NO DISTRESS NOTED. RESPIRATIONS EASY. IV FLUIDS MAINTAINED. CALL LIGHT WITHIN REACH
[2018-10-19 06:19] LABS: BUN 21 mg/dl (7-24); CHLORIDE 114 mmol/L (98-107); CREATININE 1.25 mg/dL (0.70-1.30); POTASSIUM 3.8 mmol/L (3.5-5.1); SODIUM 144 mmol/L (136-145)
[2018-10-19 06:45] LABS: HEMATOCRIT 35.8 % (42.0-52.0); HEMOGLOBIN 11.5 g/dl (14.0-18.0); MEAN CORPUSCULAR HGB 30.1 pg (27.0-31.0); MEAN CORPUSCULAR HGB CONC 32.1 g/dl (33.0-37.0); MEAN PLATELET VOLUME 10.4 fl (9.6-12.3); PLATELET COUNT AUTOMATED 239 10*3/uL (130-400); RED BLOOD COUNT 3.82 10*6/uL (4.50-5.90); RED CELL DISTRI WIDTH 14.7 % (0-14.5); WHITE BLOOD COUNT 20.7 10*3/uL (4.8-10.8)
[2018-10-19 06:46] LABS: MEAN CELL VOLUME 93.7 fl (80.0-94.0)
[2018-10-19 07:23] LABS: PLATELET SUFFICIENCY NORMAL (NORMAL); TOTAL CELLS COUNTED 100 #CELLS
[2018-10-19 08:00] VITALS: BP 150/74
--- NOTE | 2018-10-19 08:19 | NUR ---
PT RESTING IN BED. NO DISTRESS NOTED. WILL MONITOR
--- NOTE | 2018-10-19 10:32 | NUR ---
RIGGING SUPERVISOR has not heard back from patients insurance for confirmation of continuous pickling line pickler helper time. RIGGING SUPERVISOR spoke with patient and asked him to call the insurance company back to confirm the time of continuous pickling line pickler helper. -ZAHEER Villar
[2018-10-19 12:00] VITALS: BP 146/78
[2018-10-19] MEDS ORDERED: TESSALON PERLE100 M1 PO (12:21)
[2018-10-19] MEDS ORDERED: Ipratropium Brom3 ML NEB (12:46)
[2018-10-19] MEDS ORDERED: BREO ELLIPTA 21 EACH INH (12:48)
--- NOTE | 2018-10-19 13:31 | NUR ---
Discharge instructions reviewed with patient/family. Patient receptive and verbalizes understanding. Follow-up care arranged. Written instructions given to patient/family. BRANDIE GRAHAM
--- NOTE | 2018-10-19 13:32 | NUR ---
COIL CUTTER spoke with patient insurance. There was a mix up with the pickle processor time arrangement. While on hold they were able to schedule a pickle processor for the patient via [employer] within 10 minutes. The patient and RN were notified. -ZAHEER Villar
== END 2018-10-19 13:31 | disposition home or self-care (01) | DRG 191 ==
LOC: ED 10:35 → 5E 12:54 → EDHOLD 12:54 → 5E 13:14
PROVIDERS: Internal Medicine; ADMIT Internal Medicine
DX: J44.1 Chronic obstructive pulmonary disease with (acute) exacerbation (principal); I13.0 Hypertensive heart and chronic kidney disease with heart failure and stage 1 through stage 4 chronic kidney disease, or unspecified chronic kidney disease; N17.9 Acute kidney failure, unspecified; I50.32 Chronic diastolic (congestive) heart failure; I95.9 Hypotension, unspecified; D72.829 Elevated white blood cell count, unspecified; E11.22 Type 2 diabetes mellitus with diabetic chronic kidney disease; F41.9 Anxiety disorder, unspecified; E78.1 Pure hyperglyceridemia; T38.0X5A Adverse effect of glucocorticoids and synthetic analogues, initial encounter; R07.9 Chest pain, unspecified; N18.3 Chronic kidney disease, stage 3 (moderate); E78.5 Hyperlipidemia, unspecified; I48.0 Paroxysmal atrial fibrillation; Z86.73 Personal history of transient ischemic attack (TIA), and cerebral infarction without residual deficits; Z83.3 Family history of diabetes mellitus; Z82.49 Family history of ischemic heart disease and other diseases of the circulatory system; I25.2 Old myocardial infarction; Z79.899 Other long term (current) drug therapy; Z79.01 Long term (current) use of anticoagulants; Y92.89 Other specified places as the place of occurrence of the external cause

== ENCOUNTER 2018-10-24 16:06 | Inpatient (IN) | payer OTHER ==
[~2018-10-24] VITALS: Ht 185.4 cm; Wt 86.4 kg
[2018-10-24] VITALS (7 sets, daily range): BP systolic 88–136; BP diastolic 46–73
--- NOTE | ~2018-10-24 | EKG ---
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
--- NOTE | ~2018-10-24 | WRIGHTHP ---
[place], [place] PATIENT HISTORY AND PHYSICAL EXAM NAME: LUH CONWAY [facility] #: [id number] UNIT #: [id number] ROOM: 519 DOCTOR: RUBINA JACKSON MD BIRTHDATE: [birth year] DOS: 10/25/2018 HISTORY OF PRESENT ILLNESS: The patient is still complaining of shortness of breath. The patient with a past medical history of severe COPD and nicotine smoke dependence. Other past medical history, benign essential hypertension. The patient presented with increased shortness of breath. There is other history; 1. He has a COPD. 2. Chronic atrial fibrillation. 3. Coronary artery disease and RI. When the patient presented with increased shortness of breath, he was diagnosed as having an acute exacerbation of COPD and admitted and started on treatment by Dr. Dejesus with corticosteroids, antibiotic, oxygen, bronchodilators and he still says he is short of breath. SYSTEMS REVIEW: RESPIRATORY: Increasing shortness of breath. GASTROINTESTINAL: No nausea, vomiting, diarrhea or constipation. CARDIOVASCULAR: No chest pains or palpitations. FAMILY HISTORY: Noncontributory. HOME MEDICATIONS: DuoNeb, Xarelto, finasteride, Flomax, losartan, Wellbutrin, oxybutynin, amiodarone, Xanax, prazosin. PHYSICAL EXAMINATION: GENERAL APPEARANCE: Alert, oriented x 3. Generalized weakness. VITAL SIGNS: Blood pressure 136/68, heart rate 85 beats per minute, breathing 20 times per minute, temperature 98.1 degrees Fahrenheit. HEENT AND NECK: Extraocular movements are intact. Sclerae are anicteric. Oral mucosa is moist and clean. No obvious facial weakness. Neck is supple without any lymphadenopathy. No thyromegaly. No JVD. No carotid arterial bruits. LUNGS: Decreased breath sounds all over, slight expiratory wheezing. CARDIOVASCULAR SYSTEM: Heart rate is regular in rate and rhythm. S1 and S2 normally audible. No significant murmur or any other abnormal cardiac sounds. ABDOMEN: Soft, nontender. No obvious organomegaly. Bowel sounds are present. No obvious herniation. EXTREMITIES: Without significant cyanosis or edema. Warm to touch. CENTRAL NERVOUS SYSTEM: Alert and oriented x 3. Cranial nerves II-XII are intact. Speech is normal. The patient is able to move all extremities. Normal muscle strength. Deep tendon reflexes are equal on both sides. Plantars were downgoing. ALLERGIES: No known drug allergies. IMPRESSION: 1. Acute exacerbation of chronic obstructive pulmonary disease with acute over chronic respiratory failure, being treated with bronchodilators, corticosteroids, oxygen, nebulizer treatments with no significant improvement so [place], [place] PATIENT HISTORY AND PHYSICAL EXAM NAME: LUH CONWAY UNIT #: [id number] ROOM: [facility] DOCTOR: RUBINA JACKSON MD BIRTHDATE: [birth year] [facility]. 2. Chronic atrial fibrillation. The patient is anticoagulated with Xarelto. Heart rates are controlled. 3. Mixed hyperlipidemia, treated with atorvastatin. 4. Benign essential hypertension. The patient is on prazosin. Blood pressure is being monitored and treated. I will increase his dose of losartan because blood pressure is staying on the higher side. RUBINA JACKSON MD CM:HISPHYS:PATIENT HISTORY AND PHYSICAL EXAMINATION 15 4 RUBINA JACKSON MD 10/26/18 0145 interface
--- NOTE | ~2018-10-24 | DS ---
[place], [place] DISCHARGE SUMMARY NAME: LUH CONWAY UNIT #: [id number] ROOM: 519 DOCTOR: RUBINA JACKSON MD BIRTHDATE: [birth year] DOS: 10/27/2018 DISCHARGE DIAGNOSES: 1. Acute exacerbation of severe underlying chronic obstructive pulmonary disease with acute over chronic respiratory failure. 2. Chronic atrial fibrillation. The patient on Xarelto. 3. Mixed hyperlipidemia. 4. Benign essential hypertension. 5. Underlying chronic obstructive pulmonary disease. 6. Coronary artery disease of [place] vessels and myocardial infarction. HOSPITAL COURSE: The patient presented to [facility] Emergency Department and was admitted by Dr. Khanh Dejesus for increased shortness of breath and acute exacerbation of COPD with acute over chronic respiratory failure. The patient continues to smoke cigarettes, although he is cutting back, but he has severe underlying disease. The patient was started on treatment with corticosteroids, oxygen, antibiotic and bronchodilators and finally his breathing has improved back to the baseline and he says he can be discharged to home. The patient is looking very comfortable, breathing normally and not wheezing. The patient's chest x-ray showed no acute abnormality. Blood cultures were negative. BUN and creatinine 20 and 1.4. DISCHARGE MANAGEMENT: Medrol Dosepak, Augmentin for 1 week, gabapentin 100 mg 3 times a day, losartan 100 mg a day, atorvastatin 10 mg a day, Xarelto 20 mg daily, lisinopril 2.5 mg a day, bupropion XL 150 mg a day, amiodarone 200 mg a day, prazosin 2 mg a day, trazodone 50 mg daily as needed. Follow up with Dr. Khanh Dejesus in less than a week. RUBINA JACKSON MD CM:JIM 1100 1107 RUBINA JACKSON MD 10/27/18 1106 interface
--- NOTE | ~2018-10-24 | PR ---
[place], [place] PROGRESS NOTE [id number] UN[facility] #: [id number] ROOM: 519 DOCTOR: RUBINA JACKSON MD BIRTHDATE: [birth year] DOS: 10/26/2018 SUBJECTIVE: The patient is still complaining of shortness of breath. PHYSICAL EXAMINATION: GENERAL APPEARANCE: The patient is alert and oriented x 3, in no visible distress. VITAL SIGNS: Blood pressure 123/60, heart rate of 80 beats per minute, breathing 20 times per minute, temperature 98 degrees Fahrenheit. CARDIOVASCULAR SYSTEM: Heart rate is regular in rate and rhythm. S1 and S2 normally audible. LUNGS: Clear to auscultation. ABDOMEN: Soft, nontender. No obvious organomegaly. Bowel sounds are present. EXTREMITIES: Without significant cyanosis or edema. IMPRESSION: 1. The patient with acute exacerbation of severe underlying chronic obstructive pulmonary disease, severe underlying disease and continued nicotine smoke dependence, still short of breath. I will continue treatment with corticosteroids, antibiotic, oxygen and nebulizer treatments. 2. Chronic atrial fibrillation. The patient is anticoagulated with Xarelto. Heart rates are controlled. 3. Mixed hyperlipidemia, treated with atorvastatin. 4. Benign essential hypertension, treated and controlled. The patient is on prazosin, losartan and treated for increased blood pressures. RUBINA JACKSON MD CM:PNTRANS 08 1 RUBINA JACKSON MD 10/27/18201 interface
[~2018-10-24 16:06] MED LIST changes: +BREO ELLIPTA 21 EACH INH; +DOXYCYCLINE100 MG PO; +Ipratropium Brom3 ML NEB; +MINIPRESS1 MG PO; +TESSALON PERLE100 M1 PO
[2018-10-24 17:09] LABS: BASO % 0.2 % (0.0-1.0); EOS # 0.3 10*3/uL (0.0-0.4); EOS % 3.2 % (1.0-4.0); HEMATOCRIT 35.1 % (42.0-52.0); HEMOGLOBIN 11.3 g/dl (14.0-18.0); LYMPH # 2.1 10*3/uL (1.3-4.4); LYMPH % 23.5 % (27.0-41.0); MEAN CELL VOLUME 93.9 fl (80.0-94.0); MEAN CORPUSCULAR HGB 30.2 pg (27.0-31.0); MEAN CORPUSCULAR HGB CONC 32.2 g/dl (33.0-37.0); MEAN PLATELET VOLUME 9.8 fl (9.6-12.3); MONO # 1.2 10*3/uL (0.1-1.0); MONO % 13.6 % (3.0-9.0); NEUT # 5.1 10*3/uL (2.3-7.9); NEUT % 58.6 % (47.0-73.0); PLATELET COUNT AUTOMATED 208 10*3/uL (130-400); RED BLOOD COUNT 3.74 10*6/uL (4.50-5.90); RED CELL DISTRI WIDTH 14.6 % (0-14.5); WHITE BLOOD COUNT 8.8 10*3/uL (4.8-10.8)
[2018-10-24 17:19] LABS: INTERNATIONAL NORM RATIO 1.1 (2.0-3.5)
[2018-10-24 17:27] LABS: ALBUMIN 2.9 gm/dl (3.1-4.5); ALKALINE PHOSPHATASE 100 U/L (45-117); BUN 20 mg/dl (7-24); CHLORIDE 112 mmol/L (98-107); CREATININE 1.42 mg/dL (0.70-1.30); LIPASE 153 U/L (73-393); POTASSIUM 3.8 mmol/L (3.5-5.1); SGOT/AST 16 IU/L (3-35); SGPT/ALT 27 U/L (12-78); SODIUM 142 mmol/L (136-145)
[2018-10-24 17:28] LABS: TROPONIN I < 0.015 ng/ml (<0.045)
[2018-10-24 17:39] LABS: ACT PARTIAL THROMBO TIME 30.6 SECONDS (20.0-32.1)
[2018-10-24 21:05] LABS: BILIRUBIN NEGATIVE (NEGATIVE); BLOOD TRACE-INTACT (NEGATIVE); CLARITY CLEAR (CLEAR); COLOR YELLOW (YELLOW); GLUCOSE NEGATIVE (NEGATIVE); KETONE NEGATIVE (NEGATIVE); LEUKO ESTERASE NEGATIVE (NEGATIVE); NITRITE NEGATIVE (NEGATIVE); PH 5.5 (5.0-9.0); SPECIFIC GRAVITY 1.015 (1.005-1.030); UROBILINOGEN 0.2 E.U./dl (0.2-1.0)
[2018-10-24] MEDS ORDERED: TRAZODONE50 MG PO (21:16)
[2018-10-24] MEDS ORDERED: LISINOPRIL2.5 MG PO (21:16)
[2018-10-25] VITALS: BP 111/75
[2018-10-25 08:00] VITALS: BP 118/68
[2018-10-25 12:00] VITALS: BP 132/71
[2018-10-25 16:00] VITALS: BP 136/68
[2018-10-25 20:00] VITALS: BP 124/65
[2018-10-26] VITALS: BP 121/58
[2018-10-26 08:00] VITALS: BP 127/64
[2018-10-26 12:00] VITALS: BP 118/55
[2018-10-26 16:00] VITALS: BP 122/60
[2018-10-26 20:00] VITALS: BP 130/72
[2018-10-27 08:00] VITALS: BP 152/70
[2018-10-27] MEDS ORDERED: LOSARTAN POTAS100 M1 PO (10:45)
[2018-10-27] MEDS ORDERED: AUGMENTIN 875-875 MG PO (10:52)
[2018-10-27] MEDS ORDERED: MEDROL DOSEPAK4 MG PO (10:53)
== END 2018-10-27 11:29 | disposition home or self-care (01) | DRG 189 ==
LOC: ED 16:06 → 5E 18:37 → EDHOLD 18:37 → 5E 20:31
PROVIDERS: Nurse Practitioner Family; ADMIT Internal Medicine
DX: J96.20 Acute and chronic respiratory failure, unspecified whether with hypoxia or hypercapnia (principal); J44.1 Chronic obstructive pulmonary disease with (acute) exacerbation; I48.2 Chronic atrial fibrillation; N18.2 Chronic kidney disease, stage 2 (mild); I12.9 Hypertensive chronic kidney disease with stage 1 through stage 4 chronic kidney disease, or unspecified chronic kidney disease; E78.2 Mixed hyperlipidemia; I25.10 Atherosclerotic heart disease of native coronary artery without angina pectoris; F17.210 Nicotine dependence, cigarettes, uncomplicated; I25.2 Old myocardial infarction; Z79.899 Other long term (current) drug therapy; Z82.49 Family history of ischemic heart disease and other diseases of the circulatory system; Z83.3 Family history of diabetes mellitus; Z79.01 Long term (current) use of anticoagulants

== ENCOUNTER 2018-11-04 14:45 | Inpatient (IN) | payer OTHER ==
[~2018-11-04] VITALS: Ht 185.4 cm; Wt 83.5 kg
--- NOTE | ~2018-11-04 | CON ---
[place], [place] REPORT OF CONSULTATION NAME: L[facility] CONWAY [facility] #: [id number] UNIT #: [id number] ROOM: [facility] DOCTOR: GALLO VELASQUEZ MD,CHRISTOPH BIRTHDATE: [birth year] DOS: 11/08/2018 PULMONARY CONSULTATION AND EVALUATION CONSULTATION REQUESTED BY: Khanh Dejesus M.D. REASON FOR CONSULTATION: To assess the patient for acute exacerbation of COPD. HISTORY OF PRESENT ILLNESS: This is a 63-year-old white male, who has been admitted to the hospital under the care of Dr. Khanh Dejesus on the date of 11/04/2018. The patient has been admitted to the hospital and treated as the patient has been noted with suicidal ideation. He has been also noted with acute exacerbation of COPD as well. He has been treated in the Intensive Care Unit, 1:1 observation, and also getting treatment for acute exacerbation of COPD. He reported symptoms of recent increase of shortness of breath associated with cough intermittently. He denies symptoms of chest pain. Sputum expectoration has been noted in small amounts at times. Wheezing and chest tightness was also reported. PAST MEDICAL HISTORY: The patient was known with: 1. History of heart failure with preserved ejection fraction. 2. The patient with chronic kidney disease, stage 3. 3. History of nicotine dependence. 4. COPD. 5. Type 2 diabetes mellitus. 6. Hyperlipidemia. 7. Essential hypertension. 8. Previous history of TIA. 9. Paroxysmal atrial fibrillation. HOME MEDICATIONS: The home medications were listed as Proventil HFA nebulizer (albuterol sulfate), use of Xanax, amiodarone, Lipitor, Wellbutrin, Breo Ellipta, DuoNeb, lisinopril, losartan, prazosin, Xarelto, and trazodone. CURRENT MEDICATIONS: Current medications administered on this hospitalization were noted as use of Protonix, Xarelto, losartan, Wellbutrin-XL, Lipitor, amiodarone, prazosin, Pulmicort Respules, DuoNeb, Solu-Medrol 60 mg IV b.i.d., IV Rocephin, and some other p.r.n. medications. DRUG ALLERGIES: Noted no known drug allergies. SOCIAL HISTORY: The patient is currently , lives at home. He has been noted tobacco use, 1 pack of cigarettes since teenager. The patient is currently smoking half a pack of cigarettes per day or less. The patient has 3 children. FAMILY HISTORY: Reported, history of father was unknown. Mother at age of 70 years from complications of diabetes and coronary artery disease. REVIEW OF SYSTEMS: [place], [place] REPORT OF CONSULTATION NAME: LUH CONWAY UNIT #: [id number] ROOM: [facility] DOCTOR: CHRISTOPH CASH MD BIRTHDATE: [birth year] CONSTITUTIONAL SYMPTOMS: Fatigue and tiredness noted without any symptoms of fever or chills. EYES: Denies burning, redness, or tenderness. EAR, NOSE, AND THROAT SYMPTOMS: No sore throat, hoarseness, otalgia, postnasal drainage, or epistaxis. CARDIOVASCULAR SYSTEM: No angina pain, edema, or pain of the lower extremity. GASTROINTESTINAL SYMPTOMS: No dysphagia, nausea, vomiting, diarrhea, abdominal pain, hematemesis, melena, or hematochezia. SKIN: Denies abnormal lesions or rashes. CENTRAL NERVOUS SYSTEM: No dizziness, headache, diplopia, or syncopal episodes. GENITOURINARY SYMPTOMS: Denies dysuria, suprapubic pain, hematuria, or flank pain. Remaining systems were reviewed and they were noted all negative. PHYSICAL EXAMINATION: GENERAL: The patient is a 63-year-old male patient, currently sitting comfortably in the ICU, awake, alert, and oriented without distress. Height of 6 feet 1 inch, weight of 184 pounds, and BMI of 24.3 recorded by nursing staff on admission. VITAL SIGNS: Temperature of 100 degrees Fahrenheit was noted yesterday within tympanic membrane. The temperature otherwise noted as normal. Rest of the vital signs, respiratory rate of 20, heart rate of 77 this morning, and blood pressure of 122/68. Pulse ox saturation at rest on room air is 96% saturation recorded. HEENT: Examination shows head was atraumatic. Eyes nonicterus. NECK: Supple. CARDIOVASCULAR SYSTEM: S1, S2 is audible. LUNGS: Noted with mild expiratory wheezing, decreased breath sounds. There were no crackles. ABDOMEN: Soft, nontender. Bowel sounds present. EXTREMITIES: Without any acute edema. MUSCULOSKELETAL: Noted without any gross deformities. CENTRAL NERVOUS SYSTEM: No focal deficit. LABORATORY DATA: CBC on 11/04/2018, WBC count was 15.7, hemoglobin was 12.2, and platelet count was normal. Lactic acid is 1.3. CMP that was done on 11/04/2018, BUN was 25 and creatinine was 1.4 on admission. Blood culture on 11/04/2018 showed no bacterial growth. Phosphorus level today was noted at 3.5, which was normal. PTH was noted elevated at 100.9. The vitamin D was noted as low as 15. IMAGING DATA: The CT scan of the chest that was done, which was completed on 11/04/2018, on admission, noted without any acute pulmonary abnormalities. Chest x-ray noted clear of any acute infiltration as well. IMPRESSION: The patient has been noted with: 1. History of chronic nicotine dependence, currently treated for acute exacerbation of chronic obstructive pulmonary disease. 2. Suicidal ideation, which was noted, currently treated and managed by the Psychiatry services as well. [place], [place] REPORT OF CONSULTATION NAME: LUH CONWAY UNIT #: [id number] ROOM: [facility] DOCTOR: CHRISTOPH CASH MD BIRTHDATE: [birth year] PLAN OF MANAGEMENT: Detailed discussion about tobacco cessation was done with the patient. The patient will discontinue Solu-Medrol, instead will be started on tapering prednisone since the chronic obstructive pulmonary disease exacerbation has been improving. Home medications to be reviewed, long-term management and plan of chronic obstructive pulmonary disease, outpatient assessment Other medical management, plan of care, and additional treatment changes will be made based on progression of the illness. Usual care, other therapy, plan of management, and additional treatment changes will be made as the illness progresses. CHRISTOPH HOLDER MD CM:CONSTR:REPORT OF CONSULTATION 1234 11/09/18 0129 interface
--- NOTE | ~2018-11-04 | EKG ---
[place], [place] ELECTROCARDIOGRAM REPORT NAME: LUH CONWAY UNIT #: [id number] ROOM: 523 DOCTOR: RAFA DRAFT REPORT BIRTHDATE: [birth year] [facility] Test Date: 2018-11-04 Test Time: 15:39:19 Pat Name: LUH CONWYA Department: Room: 523 Gender: M Customer Account Manager: Yasmine Pierce : 1955 Requested By: ISREAL MILLER PA-C Order Number: [id number] Reading MD: Chriss Badillo MD Measurements Intervals [place] Rate: 65 P: 51 NJ: 128 QRS: 43 QRSD: 86 T: 47 QT: 427 QTc: 444 Interpretive Statements Sinus rhythm Minimal ST elevation multiple leads Consider acute pericarditis Electronically Signed On 11-05-2018 5:03:48 PDT by Chriss Badillo MD CM:EKGRPT:ELECTROCARDIOGRAM REPORT [id number] ISREAL MILLER PA-C EPIPHANY DRAFT REPORT ISREAL MILLER PA-C
--- NOTE | ~2018-11-04 | CON ---
[place], [place] RE[facility] OF CON[facility]ATION [id number] UN[facility] #: [id number] ROOM: [facility] DOCTOR: BEAU PHD JOSÉ MIGUEL BIRTHDATE: [birth year] DOS: 11/08/2018 HISTORY OF PRESENT ILLNESS: The patient is a 63-year-old male referred by Dr. Dejesus due to suicidal ideation. The patient expressed thoughts of self-harm to his home health nurse. He has a history of depression. The patient lives with his sister. He had 3 children, one of whom due to an overdose. He endorsed rare alcohol use. He smokes a few cigarettes per day and reports a history of alcohol and drug abuse. He currently uses marijuana. 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 MEDICATIONS: Vitamin D, Protonix, Xarelto, Cozaar, Wellbutrin-XL, Lipitor, Cordarone, Minipress, Pulmicort Respules, DuoNeb, Desyrel, Deltasone, Zithromax, Xanax and Rocephin. MENTAL STATUS EXAMINATION: The patient was sitting comfortably, in no apparent distress. He was awake, alert and oriented to person, place and generally to time. Mood was depressed and affect was tearful. He denied suicidal and homicidal ideation, plan, and intent. He states that he is feeling less depressed since he and his girlfriend have reconciled the trigger for his "nervous breakdown" was his girlfriend breaking up with him. He follows up at [facility] for therapy and medications. He reports feeling suicidal in the past when he was 18, but denied attempts. He also reports a history of trauma and multiple deaths within his family in a short period of time. Currently, he is crying frequently and having trouble staying asleep. He ruminates about difficult events from his past, but does not appear to meet full criteria for PTSD. Speech and language were within normal limits conversationally. Thought process and content were normal. There is no evidence of hallucinations or delusions. Several times, the patient became tearful, especially when discussing his girlfriend. He states that he would be agreeable to treatment on the [facility], specifically so that his medications may be adjusted. DIAGNOSES: Major depressive disorder, recurrent, severe without psychotic features; cannabis abuse. RECOMMENDATIONS: The patient firmly denies suicidal ideation, plan, and intent. He is agreeable to signing in voluntarily on the [facility] to further stabilize his depressive symptoms. I spoke with Dr. Castaneda who agreed to admit the patient. [place], [place] REPORT OF CONSULTATION NAME: LUH CONWAY [place] UNIT #: [id number] ROOM: [facility] DOCTOR: BEAU, PHD JOSÉ MIGUEL BIRTHDATE: [birth year] Zuleima Zepeda, PhD CM:CONSTR:REPORT OF CONSULTATION 1337 11/09/18 0310 interface
[~2018-11-04 14:45] MED LIST changes: +AUGMENTIN 875-875 MG PO; +LOSARTAN POTAS100 M1 PO; +TRAZODONE50 MG PO
[2018-11-04 14:49] VITALS: BP 102/52
--- NOTE | 2018-11-04 14:59 | NUR ---
PATIENT BELONGINGS HAVE BEEN TAKEN FROM PATIENT PLACED INTO BAG AND INTO THE MED ROOM. PATIENT BELONGINGS INCLUDE JEANS, SHIRT AND BOOTS.
[2018-11-04 15:42] LABS: BILIRUBIN NEGATIVE (NEGATIVE); BLOOD NEGATIVE (NEGATIVE); CLARITY CLEAR (CLEAR); COLOR YELLOW (YELLOW); GLUCOSE NEGATIVE (NEGATIVE); KETONE TRACE (NEGATIVE); LEUKO ESTERASE NEGATIVE (NEGATIVE); NITRITE NEGATIVE (NEGATIVE); PH 5.5 (5.0-9.0); SPECIFIC GRAVITY 1.025 (1.005-1.030); UROBILINOGEN 0.2 E.U./dl (0.2-1.0)
[2018-11-04 15:48] LABS: URINE AMPHETAMINES < 1000 (1000ng/ml); URINE BARBITURATES < 200 (200ng/ml); URINE BENZODIAZEPINES > 200 (200ng/ml); URINE CANNABINOIDS (THC) > 50 (50ng/ml); URINE COCAINE < 300 (300ng/ml); URINE METHADONE < 300 (300ng/ml); URINE OPIATES < 300 (300ng/ml)
[2018-11-04 15:50] LABS: URINE PHENCYCLIDINE < 25 (25ng/ml)
[2018-11-04 15:59] LABS: BACTERIA 1+; HYALINE CAST 51-100; MUCOUS 2+; WBC 0-2 wbc/hpf (0-5)
[2018-11-04 16:01] LABS: BASO % 0.1 % (0.0-1.0); EOS % 0.1 % (1.0-4.0); HEMATOCRIT 39.2 % (42.0-52.0); HEMOGLOBIN 12.7 g/dl (14.0-18.0); LYMPH # 1.6 10*3/uL (1.3-4.4); LYMPH % 10.3 % (27.0-41.0); MEAN CELL VOLUME 95.6 fl (80.0-94.0); MEAN CORPUSCULAR HGB CONC 32.4 g/dl (33.0-37.0); MEAN PLATELET VOLUME 9.8 fl (9.6-12.3); MONO # 1.2 10*3/uL (0.1-1.0); MONO % 7.7 % (3.0-9.0); NEUT # 12.5 10*3/uL (2.3-7.9); NEUT % 79.9 % (47.0-73.0); PLATELET COUNT AUTOMATED 237 10*3/uL (130-400); RED CELL DISTRI WIDTH 15.7 % (0-14.5); WHITE BLOOD COUNT 15.7 10*3/uL (4.8-10.8)
[2018-11-04 16:16] LABS: ALKALINE PHOSPHATASE 80 U/L (45-117); BUN 25 mg/dl (7-24); CHLORIDE 106 mmol/L (98-107); CREATININE 1.54 mg/dL (0.70-1.30); POTASSIUM 4.2 mmol/L (3.5-5.1); SGOT/AST 12 IU/L (3-35); SGPT/ALT 37 U/L (12-78); SODIUM 137 mmol/L (136-145); TOTAL PROTEIN 6.2 gm/dL (6.4-8.2)
[2018-11-04 16:26] LABS: ACETAMINOPHEN (TYLENOL) < 5.0 ug/ml (10-30); ETHYL ALCOHOL < 3.0 mg/dl (<3)
--- NOTE | 2018-11-04 17:39 | NUR ---
REPORT GIVEN TO CANDY GAITAN AT THIS TIME. PATIENT TAKEN TO 5TH FLOOR BY LOIS GAITAN.
--- NOTE | 2018-11-04 17:55 | NUR ---
Report received from Steff in ER, States that Carmita Tod was notified of pt but had not been in to see pt yet in ER.
--- NOTE | 2018-11-04 18:15 | NUR ---
Time: 1814 A 63 year old male admitted to 5E under services of DR. ADOLFO JUAN,MARIAH. Pt. arrived via stretcher from ER. Chief complaint: pt states he was being seen by his home health care nurse today and he states that he had a breakdown in front of nurse. States that his girlfriend left him for someone else 2 months ago and he has been getting more and more depressed. Pt states that he has had feelings of harming other, particularing his girlfriend. Pt states when be becomes very angry he has had difficulty controlling his behavior at times. States that he will yell and then start to throw thing randomly such as rocks and bricks. I asked pt if he had any feeling of harming himself or staff here and he states no, its really only his girlfriend for what she did. States he decided to come to hospital after [facility] and his sister advised him that this would be a good idea. Pt states he is also SOB at times. Pt has crackles noted to bl bases of lungs.. CANDY ALCANTAR
--- NOTE | 2018-11-04 18:40 | NUR ---
I notified Dr. Dejesus of pt statements regarding depression over girl friend leaving him and his feelings of wanting to inflict harm on her.
--- NOTE | 2018-11-04 18:50 | NUR ---
Spoke with Dr. Dejesus. New orders obtained at 1840 and placed in computer.
--- NOTE | 2018-11-04 18:53 | NUR ---
Spoke with Michelle at [facility]. Notified her of details of new consult for Dr. Castaneda. States she will notify physican.
--- NOTE | 2018-11-04 19:25 | NUR ---
Dr. Perea notified of consult. States he cannot see pt until Thursday.
--- NOTE | 2018-11-04 19:39 | NUR ---
Message left for Dr. Dejesus that Dr. Perea cannot see pt until Thursday.
--- NOTE | 2018-11-04 19:44 | NUR ---
Dr. Dejesus called back and new orders received for chest ct without contrast.
[2018-11-04 20:00] VITALS: BP 132/75
--- NOTE | 2018-11-04 20:30 | NUR ---
DURING BEDSIDE REPORT, RN STATES PATIENT SENT TO ER FOR "MENTAL BREAKDOWN". PATIENT PRESENTED TO ER WITH COMPLAINTS OF THOUGHTS OF HARMING SELF AND OTHERS. WHEN PATIENT QUESTIONED REGARDING THESE THOUGHTS, PATIENT BACK AND FORTH BOTH CONFIRMING AND DENYING THOUGHTS OF HARMING SELF. EXPLAINED TO PATIENT THAT IS A SERIOUS THREAT TO MAKE AND HAS TO BE TAKEN SERIOUSLY, PATIENT STATES DR MATA ALREADY SPOKE WITH HIM REGARDING SAME. QUESTIONED PATIENT REGARDING THOUGHTS OF HARMING OTHERS TO WHICH PATIENT CONFIRMS. WHEN ASKED PATIENT TO CLARIFY WHO HE WOULD LIKE TO HARM HE STATES "ANYONE WALKING UP THE ROAD. I'D LIKE TO THROW A BRICK AT THEM." QUESTIONED PATIENT WHETHER THIS RN NEEDED TO BE CONCERNED FOR STAFF TO WHICH PATIENT REPLIED "NO, LONG YOU GIVE ME MY MEDS." FURTHER EXPLAINED TO PATIENT THAT D/T THE NATURE OF THESE STATEMENTS, I WOULD NEED TO CONTACT TERA SAUL, AND NURSING FIRMWARE ENGINEER AND PATIENT WOULD NEED TO BE MOVED TO PRIVATE ROOM CLOSER TO NURSES STATION. PATIENT STATED "NO, NO. THAT'S NOT NECESSARY." EXPLAINED TO PATIENT HOSPITAL POLICY REGARDING SUCH THREATS. TERA RASCON AND NURSING FIRMWARE ENGINEER CONTACTED AND UPDATED REGARDING PATIENT AND THREATS. PATIENT BEING MOVED TO 523 FOR CLOSER OBSERVATION
--- NOTE | 2018-11-04 20:45 | NUR ---
24 HR chart check completed.
--- NOTE | 2018-11-04 21:00 | NUR ---
TRANSPORTED OFF FLOOR FOR TESTING
--- NOTE | 2018-11-04 21:30 | NUR ---
RETURNED FROM TESTING. STATES FEELING "100% BETTER". RESPIRATIONS EASY. LUNGS DIMINISHED WITH FAINT SCATTERED EXP WHEEZES. PULSE OX 99% RA. DENIES SOB. CALL LIGHT WITHIN REACH. NO VOICED COMPLAINTS
--- NOTE | 2018-11-04 22:37 | NUR ---
MEDICATED WITH TRAZADONE TO ASSIST WITH SLEEP
[2018-11-05] VITALS: BP 103/51
--- NOTE | 2018-11-05 | NUR ---
MEDS EFFECTIVE. SLEEPING. RESPIRATIONS EASY. PULSE OX 98% RA. CALL LIGHT WITHIN REACH
--- NOTE | 2018-11-05 06:00 | NUR ---
SLEPT THROUGHOUT NIGHT WITH NO DISTRESS NOTED. RESPIRATIONS EASY. CALL LIGHT WITHIN REACH. NO VOICED COMPLAINTS THIS SHIFT. NO THOUGHTS OF HARMING SELF OR OTHERS
[2018-11-05 08:00] VITALS: BP 100/50
--- NOTE | 2018-11-05 08:30 | NUR ---
Chronometer Tester in to talk to patient. Patient states lives at home with his sister. There are 3 steps in the home. Physician: Dr. Khanh Dejesus [facility]acy: [facility] [place] Home health services: [facility] currently and would like to resume those services upon discharge Patient's level of ADLs: INDEPENDENT Patient has working utilities: yes DME: nebulizer Follow-up physician's appointment after d/c: he prefers to make his own follow up appt after discharge Does patient want to access PORTAL?: no Discharge plan discussed with patient. He lives at home with his sister. He is independent in his ADLs and ambulation. Discussed home health care services and he currently has [facility] and would like to resume those services upon discharge. He states he feels like he has a nervous breakdown. He doesn't want to hurt himself or anyone else. Discussed the [facility] and he refuses to go. He states he does feel depressed because of his ex-girlfriend. They have not spoken in 2 1/2 months. He states she doesn't call me and I don't call her. He has been on antidepressant medications previously. Melony Ashby is his case fitter with [facility] and he does also see Carmita Baron. When medically stable he will be discharged to home. His insurance will transport on discharge. TOM HICKMAN
--- NOTE | 2018-11-05 11:05 | NUR ---
met with client who is well known to me, he reports that he did not feel well and came to the er, he said that since his girlfriend kicked him out he has been depressed and thinks he had a nervous break down, but he denies any suicidal or homicidal thoughts to me now, he said that he said that but he does not feel that way, he just wants to get better and go back to his sisters where he is staying, he said that he will follow up at [facility] where he does see me for therapy and he gets his scripts there for his mental health needs, he would not meet criteria to be admitted into an inpatient psych unit at this time, he does have appts scheduled this thursday at the office, but i told him if he is still here we will reschedule him and i will follow him.
[2018-11-05 12:00] VITALS: BP 118/62
[2018-11-05 20:00] VITALS: BP 107/73
[2018-11-06] VITALS: BP 106/61
[2018-11-06 07:34] LABS: BUN 31 mg/dl (7-24); CHLORIDE 109 mmol/L (98-107); CREATININE 1.33 mg/dL (0.70-1.30); POTASSIUM 4.6 mmol/L (3.5-5.1); SODIUM 140 mmol/L (136-145)
[2018-11-06 08:00] VITALS: BP 124/67
--- NOTE | 2018-11-06 08:00 | NUR ---
PT RESTING IN BED, DENIES ANY COMPLAINTS. IV FLUIDS INFUSING PER ORDER, PT ON ROOM, DENIES ANY SOB. CALL LIGHT WITHIN REACH.
--- NOTE | 2018-11-06 10:10 | NUR ---
DR STEPHENS HERE AT THIS TIME, STATES DUE TO PT'S PREVIOUS THREATS HE IS TO BE PINK SLIPPED TO U WHEN MEDICALLY STABLE.
--- NOTE | 2018-11-06 10:45 | NUR ---
PT VERY UPSET REGARDING BEING PINK SLIPPED, MADE AWARE BY PT'S SISTER THAT HE STATED TO HER OVER THE PHONE THAT HE STATED TO HER HE WOULD PULL HIS IV'S OUT AND WALK OUT OF THE HOSPITAL. NURSING ROLLER PRINTING SUPERVISOR, SECURITY MADE AWARE. 1:[address]
--- NOTE | 2018-11-06 11:30 | NUR ---
Spoke to Toshia at [facility], , regarding inpatient mental health authorization. IP carlos for 5 days with auth # [id number]. Concurrent reviewer will be Barber Pyle at [phone] x [phone]. LCD and NRD 11/10. Nursing paster supervisor, Viridiana, notified.
[2018-11-06 12:00] VITALS: BP 96/54
[2018-11-06 16:00] VITALS: BP 113/61
--- NOTE | 2018-11-06 18:59 | NUR ---
PATIENT RESTING IN BED WATCHING TV. DENIES ANY HOMICIDAL OR SUICIDAL THOUGHTS AT THIS TIME. DENIES SHORTNESS OF BREATH. BED IN LOWEST POSITION, CALL LIGHT IN REACH
[2018-11-06 20:00] VITALS: BP 117/63
--- NOTE | 2018-11-06 21:10 | NUR ---
DR MATA AWARE OF PATIENT C/O HEARTBURN. ORDER TAKEN
[2018-11-07] VITALS: BP 105/76
--- NOTE | 2018-11-07 02:55 | NUR ---
PATIENT RESTING IN BED WITH EYES CLOSED. RESPS EASY AND REGULAR. 1:1 SITTER NOT AVAILABLE AT THIS TIME PER NURSING SMASH FIXER. PATIENT NEAR NURSES STATION FOR CLOSER OBSERVATION.
--- NOTE | 2018-11-07 03:09 | NUR ---
SPOKE WITH DR MATA REGARDING PATIENT BEING A 1:1. DR MATA STATES THAT PATIENT DOES NEED TO BE A 1:1. ORDER TAKEN
--- NOTE | 2018-11-07 03:42 | NUR ---
PA PLACED FOR 1:1 PER ORDER
--- NOTE | 2018-11-07 03:44 | NUR ---
24 HR chart check completed.
[2018-11-07 08:00] VITALS: BP 109/63
--- NOTE | 2018-11-07 08:00 | NUR ---
IN TO SEE PATIENT.
--- NOTE | 2018-11-07 09:09 | NUR ---
ROUTINE MEDS GIVEN AT THIS TIME. PT RESTING QUIETLY IN BED. NO DISTRESS NOTED. PT STATES FEELING MUCH BETTER. PT DENIES ANY SUICIDAL THOUGHTS/HARMING HIMSELF AND/OR HARMING OTHERS. 1:1 MAINTAINED PER ORDER. IVF INFUSING PER ORDER. WILL CONTINUE TO MONITOR. VSS. CALL LIGHT WITHIN REACH.
[2018-11-07 12:00] VITALS: BP 109/64
--- NOTE | 2018-11-07 15:31 | NUR ---
XANAX GIVEN AT THIS TIME PER 1 TIME ORDER FOR INCREASED ANXIETY. PATIENT'S EX GIRLFRIEND HERE TO TALK WITH PATIENT. WILL CONTINUE TO MONITOR. WILL MONITOR EFFECTIVENESS.
[2018-11-07 16:00] VITALS: BP 112/60
--- NOTE | 2018-11-07 16:35 | NUR ---
IN TO SEE PATIENT AT THIS TIME.
--- NOTE | 2018-11-07 17:50 | NUR ---
Per Asia Villavicencio ( supervisor adult education) . Due to inadequate staffing 1:1 pt will be transferred to ICU for better "watching" . Nursing staff assume no responsibility it elopement occurs.
--- NOTE | 2018-11-07 17:58 | NUR ---
PT MOVED TO ICU ROOM 4 PER 1:1 ORDER. PT REMAINS 1:1. NON-MONITORED. REPORT GIVEN TO JACOB GAITAN. BELONGINGS WITH PATIENT.
--- NOTE | 2018-11-07 17:58 | NUR ---
Pt. recieved to icu #4 due to inadequate staffing. Pleasent on arrival .
--- NOTE | 2018-11-07 19:51 | NUR ---
PT. RESTING IN BED, UP TO RR WITH ASSIST. USES URINAL AT BEDSIDE. HEP LOCK IN RA ASYMPT. LUNGS HAVE EXP. WHEEZES BILAT, PULSE OX 97% ON RA. ABDOMEN SOFT, NONDISTENDED AND NORMO. NO PERIPHERAL EDEMA NOTED. IVF CONTINUE ORDERED VIA RA. PT. DENIES SUICIDE IDEATION AT PRESENT. PLEASANT AND COOPERATIVE. IN VIEW OF STAFF AND CLOSE TO DESK. 1:1 ORDER, NO ONE AVAILABLE TO SIT AT BEDSIDE. WILL CONTINUE TO WATCH PATIENT CLOSELY POSSIBLE. CHINA SNELL RN
[2018-11-07 20:00] VITALS: BP 108/60
[2018-11-08] VITALS: BP 110/56
[2018-11-08 06:31] LABS: PTH INTACT 100.9 pg/mL (18.5-88.0)
--- NOTE | 2018-11-08 07:30 | NUR ---
PATIENT IS ORDERED A 1:1 BUT UNABLE TO MAINTAIN D/T STAFFING ISSUES - GOLF CADDY AWARE.. PATIENT IS AWAKE & ORDERING BREAKFAST / CO-OPERATIVE
[2018-11-08 08:00] VITALS: BP 122/68
--- NOTE | 2018-11-08 08:00 | NUR ---
ASSESSMENTS DONE AND PATIENT IS CURRENTLY DENING THE FEELINGS TO HURT HIMSELF. HE SAID THAT HE & HIS GF ARE BACK TOGETHER. ANXIOUS BUT CO-OPERATIVE. PATIENT CURRENTLY IN AGREEMENT TO GO TO [facility].
--- NOTE | 2018-11-08 08:26 | NUR ---
Dr Perea rounded - OK to go to [facility] today from Pulmonary standpoint
--- NOTE | 2018-11-08 09:27 | NUR ---
met with client again, who is well known to me, he is seen in my office. client denies suicidal ideation to me, he said that he and his girlfriend are back together and he talked with hi siblings and they are going to have a green party for him. he is emotional, but denies that he wants to harm himself. client said he doesnt really want to stay here or go to a "psycho unit". there was some reference that he might go to [facility] here. client has follow up appts scheduled on 11/15 at [facility] with myself and for his medications. i will follow to see how client is progressinbg.
--- NOTE | 2018-11-08 09:31 | NUR ---
WASHING UP AT BEDSIDE AFTER SPEAKING WITH TERA RASCON WHO HE FOLLOWS WITH AN OUT-PATIENT AND CURRENTLY WAS TO BE SEEN NEXT THURSDAY FOR MEDS & TO MEET WITH TERA. WILL CONTINUE TO FOLLOW WITH TERA AFTER DISCHARGE. PER DIRECTOR SURFACE TRANSPORTATION TERA THE PINK SLIP IS NOT LEGAL IT WAS NEVER DATED OR TIMED.
--- NOTE | 2018-11-08 10:14 | NUR ---
DR YANEZ HERE AND SPOKE WITH THE PATIENT AFTER SPEAKING WITH THE NURSE.
--- NOTE | 2018-11-08 10:36 | NUR ---
Spoke to Dr. Dejesus regarding patient willing to sign into U. Dr. Dejesus states patient will be discharged to U today.
--- NOTE | 2018-11-08 11:37 | NUR ---
[facility] social workers came up, spoke with the patient & he signed the voluntary admission papers. Patient aware that he will not have his cell phone
[2018-11-08] MEDS ORDERED: BUDEPRION XL150 MG PO (11:52)
--- NOTE | 2018-11-08 11:57 | NUR ---
PATIENT REMAINS IN A ROOM WITH 1:1 ORDER - NO STAFF SO DOOR & CURTAINS REMAIN OPEN TO BE ABLE TO HAVE LINE OF SIGHT MUCH POSSIBLE. STAFF ATTEMPTS TO HAVE SOMEONE ABLE TO SEE AT ALL TIMES BUT CAN'T 100% OF THE TIME. PATIENT IS CO-OPERATIVE WITH CARE, AAOX3 BUT NEEDS FREQ REMINDERS.
[2018-11-08] MEDS ORDERED: DOXYCYCLINE100 M3 PO (12:59)
[2018-11-08] MEDS ORDERED: PREDNISONE10 MG PO (13:02)
[2018-11-08] MEDS ORDERED: VITAMIN D50000 UNIT PO (13:09)
--- NOTE | 2018-11-08 15:05 | NUR ---
REPORT CALLED TO CHAIM
--- NOTE | 2018-11-08 15:08 | NUR ---
OZZYU HERE- PT TO 3NORTH
[2018-11-09] MEDS ORDERED: B121000 MCG/1 IM (09:14)
[2018-11-09] MEDS ORDERED: DULOXETINE HCL30 MG PO (09:14)
[2018-11-09] MEDS ORDERED: FOLGARD TABLET1 EACH PO (09:14)
[2018-11-09 11:08] LABS: CREATININE,URINE 90.5 mg/dL (Not Estab.)
== END 2018-11-08 15:10 | disposition home health service (06) | DRG 191 ==
LOC: ED 14:45 → EDHOLD 16:51 → 5E 16:51 → ICCU 16:51 → 5E 17:52 → ICCU 11-07 17:55
PROVIDERS: Internal Medicine Nephrology; Physician Assistant; ADMIT Internal Medicine
DX: J44.1 Chronic obstructive pulmonary disease with (acute) exacerbation (principal); I50.32 Chronic diastolic (congestive) heart failure; I13.0 Hypertensive heart and chronic kidney disease with heart failure and stage 1 through stage 4 chronic kidney disease, or unspecified chronic kidney disease; N25.81 Secondary hyperparathyroidism of renal origin; N13.8 Other obstructive and reflux uropathy; R45.851 Suicidal ideations; F33.2 Major depressive disorder, recurrent severe without psychotic features; E44.0 Moderate protein-calorie malnutrition; E11.22 Type 2 diabetes mellitus with diabetic chronic kidney disease; E83.51 Hypocalcemia; I25.10 Atherosclerotic heart disease of native coronary artery without angina pectoris; I48.0 Paroxysmal atrial fibrillation; E78.5 Hyperlipidemia, unspecified; E78.1 Pure hyperglyceridemia; N18.3 Chronic kidney disease, stage 3 (moderate); F41.9 Anxiety disorder, unspecified; F12.90 Cannabis use, unspecified, uncomplicated; Z83.3 Family history of diabetes mellitus; Z82.49 Family history of ischemic heart disease and other diseases of the circulatory system; I25.2 Old myocardial infarction; Z79.01 Long term (current) use of anticoagulants; Z86.73 Personal history of transient ischemic attack (TIA), and cerebral infarction without residual deficits; Z79.899 Other long term (current) drug therapy; Z85.46 Personal history of malignant neoplasm of prostate; Z71.6 Tobacco abuse counseling

== ENCOUNTER 2018-11-08 11:41 | Inpatient (IN) | payer OTHER ==
[~2018-11-08] VITALS: Ht 185.4 cm; Wt 85.7 kg
--- NOTE | ~2018-11-08 | WRIGHTHP ---
[place], [place] PATIENT HISTORY AND PHYSICAL EXAM [id number] UN[facility] #: [id number] ROOM: 314 DOCTOR: LILIYA MIRANDA MD BIRTHDATE: [birth year] DOS: 11/09/2018 CHIEF COMPLAINT: "Oh, I got into a fight with my girl and got upset. I said things I shouldn't." HISTORY OF PRESENT ILLNESS: This is a 63-year-old white male who was initially admitted to the U following a brief stay on the medical floor. The patient was initially admitted to ICU for stabilization and for one-on-one behavior control. The patient was brought into the Emergency Room after being sent there by his home health aide when he mentioned that he was suicidal or homicidal towards his girlfriend. The patient since his admission to the hospital although has voiced that this was all a misunderstanding, he vehemently denies depression and states that this was all because he got into an argument with her and states that he is sleeping well, eating well and notes no signs of depression and is not suicidal or homicidal. PAST MEDICAL HISTORY: Remarkable for congestive heart failure; acute kidney failure with cortical necrosis; chronic kidney disease; COPD; diabetes; femoral artery aneurysm; hyperlipidemia; hypertension; normocytic anemia; atrial fib; history of substance abuse, especially cocaine. The patient did test positive for benzodiazepines and marijuana, but is prescribed Xanax. STRENGTHS: Ambulatory, good verbal skills, willingness to seek help. WEAKNESSES: Chronic mental health issues and poor coping skills. MENTAL STATUS: He is alert and oriented. Mood does seem to be euthymic and he was able to engage readily in conversation with me being spontaneous and denying neurovegetative symptoms, none were noted. He also convincingly denies suicidal thoughts, homicidal thoughts, or self-injurious thoughts and is very forward thinking in his plans. There is no hypomania or shelbi. There is no gross psychosis. Memory for the most part is intact. DIAGNOSIS: Major depression, recurrent. PLAN: The patient had his antidepressant regimen switched to Cymbalta, tolerated it well. He is voicing positive plans for the future and is willing to follow up in the community. I see no reason at this time to continue a length of stay as he is not lethal. We will discharge the patient home. [place], [place] PATIENT HISTORY AND PHYSICAL EXAM NAME: LUH CONWAY UNIT #: [id number] ROOM: 314 DOCTOR: LILIYA MIRANDA MD BIRTHDATE: [birth year] LILIYA MIRANDA MD CM:HISPHYS:PATIENT HISTORY AND PHYSICAL EXAMINATION 7 LILIYA MIRANDA MD 11/09/18 0940 interface
[2018-11-08] MEDS ORDERED: BUDEPRION XL150 MG PO (11:52)
[2018-11-08] MEDS ORDERED: DOXYCYCLINE100 M3 PO (12:59)
[2018-11-08] MEDS ORDERED: PREDNISONE10 MG PO (13:02)
[2018-11-08] MEDS ORDERED: VITAMIN D50000 UNIT PO (13:09)
[2018-11-08 15:57] VITALS: BP 118/56
[2018-11-08 20:00] VITALS: BP 144/80
[2018-11-09 07:25] LABS: HEMATOCRIT 37.5 % (42.0-52.0); MEAN CELL VOLUME 95.2 fl (80.0-94.0); MEAN CORPUSCULAR HGB 30.5 pg (27.0-31.0); NUCLEATED RED BLOOD CELL 0.2 % (0.0-0.0); PLATELET COUNT AUTOMATED 200 10*3/uL (130-400); RED BLOOD COUNT 3.94 10*6/uL (4.50-5.90); RED CELL DISTRI WIDTH 16.2 % (0-14.5); WHITE BLOOD COUNT 12.6 10*3/uL (4.8-10.8)
[2018-11-09 07:42] LABS: ALBUMIN 2.6 gm/dl (3.1-4.5); BUN 30 mg/dl (7-24); CHLORIDE 107 mmol/L (98-107); CHOLESTEROL 177 mg/dL (<200); CREATININE 1.31 mg/dL (0.70-1.30); POTASSIUM 4.4 mmol/L (3.5-5.1); SGOT/AST 27 IU/L (3-35); SGPT/ALT 78 U/L (12-78); SODIUM 139 mmol/L (136-145); TRIGLYCERIDES 168 mg/dl (<150); VLDL CHOLESTEROL 34 mg/dL (6-40)
[2018-11-09 07:43] LABS: ALKALINE PHOSPHATASE 74 U/L (45-117); HDL CHOLESTEROL 78 mg/dl (40-60); LDL CHOLESTEROL 65 mg/dL (9-159); TOTAL PROTEIN 5.6 gm/dL (6.4-8.2)
[2018-11-09 07:58] VITALS: BP 148/75
[2018-11-09 08:37] LABS: TOTAL CELLS COUNTED 100 #CELLS
[2018-11-09 08:38] LABS: PLATELET SUFFICIENCY NORMAL (NORMAL)
[2018-11-09] MEDS ORDERED: B121000 MCG/1 IM (09:14)
[2018-11-09] MEDS ORDERED: FOLGARD TABLET1 EACH PO (09:14)
[2018-11-09] MEDS ORDERED: DULOXETINE HCL30 MG PO (09:14)
== END 2018-11-09 14:10 | disposition home or self-care (01) | DRG 885 ==
LOC: 3N 11:41
PROVIDERS: ADMIT Psychiatry & Neurology Psychiatry
DX: F33.9 Major depressive disorder, recurrent, unspecified (principal); J44.1 Chronic obstructive pulmonary disease with (acute) exacerbation; N25.81 Secondary hyperparathyroidism of renal origin; I13.0 Hypertensive heart and chronic kidney disease with heart failure and stage 1 through stage 4 chronic kidney disease, or unspecified chronic kidney disease; I50.32 Chronic diastolic (congestive) heart failure; F41.9 Anxiety disorder, unspecified; E55.9 Vitamin D deficiency, unspecified; F12.90 Cannabis use, unspecified, uncomplicated; E11.22 Type 2 diabetes mellitus with diabetic chronic kidney disease; E78.5 Hyperlipidemia, unspecified; E78.1 Pure hyperglyceridemia; N18.3 Chronic kidney disease, stage 3 (moderate); I48.0 Paroxysmal atrial fibrillation; Z86.73 Personal history of transient ischemic attack (TIA), and cerebral infarction without residual deficits; Z87.891 Personal history of nicotine dependence; Z82.49 Family history of ischemic heart disease and other diseases of the circulatory system; Z83.3 Family history of diabetes mellitus; Z79.899 Other long term (current) drug therapy; Z79.01 Long term (current) use of anticoagulants

== ENCOUNTER 2018-11-15 13:37 | Emergency (ER) | payer OTHER ==
[~2018-11-15] VITALS: Ht 185.4 cm; Wt 86.2 kg
[~2018-11-15 13:37] MED LIST changes: +B121000 MCG/1 IM; +BUDEPRION XL150 MG PO; +DOXYCYCLINE100 M3 PO; +DULOXETINE HCL30 MG PO; +FOLGARD TABLET1 EACH PO; +VITAMIN D50000 UNIT PO
== END 2018-11-15 15:15 | disposition home or self-care (01) ==
LOC: ED 13:37
DX: Z79.2 Long term (current) use of antibiotics (principal); Z00.8 Encounter for other general examination; F17.200 Nicotine dependence, unspecified, uncomplicated; Z79.899 Other long term (current) drug therapy

== ENCOUNTER 2018-11-22 12:34 | Emergency (ER) | payer OTHER ==
[~2018-11-22] VITALS: Wt 85.7 kg
[2018-11-22 12:36] VITALS: BP 103/55
[2018-11-22 13:07] LABS: BILIRUBIN NEGATIVE (NEGATIVE); BLOOD NEGATIVE (NEGATIVE); CLARITY CLEAR (CLEAR); COLOR YELLOW (YELLOW); GLUCOSE NEGATIVE (NEGATIVE); KETONE NEGATIVE (NEGATIVE); LEUKO ESTERASE NEGATIVE (NEGATIVE); NITRITE NEGATIVE (NEGATIVE); UROBILINOGEN 0.2 E.U./dl (0.2-1.0)
[2018-11-22 13:13] LABS: BASO % 0.2 % (0.0-1.0); EOS # 0.1 10*3/uL (0.0-0.4); EOS % 1.6 % (1.0-4.0); HEMATOCRIT 34.9 % (42.0-52.0); HEMOGLOBIN 11.4 g/dl (14.0-18.0); LYMPH # 1.4 10*3/uL (1.3-4.4); LYMPH % 22.2 % (27.0-41.0); MEAN CELL VOLUME 94.1 fl (80.0-94.0); MEAN CORPUSCULAR HGB 30.7 pg (27.0-31.0); MEAN CORPUSCULAR HGB CONC 32.7 g/dl (33.0-37.0); MEAN PLATELET VOLUME 9.2 fl (9.6-12.3); MONO # 0.7 10*3/uL (0.1-1.0); MONO % 10.6 % (3.0-9.0); NEUT # 4.2 10*3/uL (2.3-7.9); NEUT % 64.9 % (47.0-73.0); PLATELET COUNT AUTOMATED 121 10*3/uL (130-400); RED BLOOD COUNT 3.71 10*6/uL (4.50-5.90); RED CELL DISTRI WIDTH 15.2 % (0-14.5); WHITE BLOOD COUNT 6.4 10*3/uL (4.8-10.8)
[2018-11-22 13:31] LABS: ALBUMIN 2.8 gm/dl (3.1-4.5); ALKALINE PHOSPHATASE 61 U/L (45-117); BUN 12 mg/dl (7-24); CHLORIDE 109 mmol/L (98-107); CREATININE 1.36 mg/dL (0.70-1.30); POTASSIUM 3.7 mmol/L (3.5-5.1); SGOT/AST 12 IU/L (3-35); SGPT/ALT 29 U/L (12-78); SODIUM 143 mmol/L (136-145); TOTAL PROTEIN 5.7 gm/dL (6.4-8.2)
== END 2018-11-22 15:15 | disposition home or self-care (01) ==
LOC: ED 12:34
PROVIDERS: Emergency Medicine
DX: R30.0 Dysuria (principal); I48.0 Paroxysmal atrial fibrillation; E78.1 Pure hyperglyceridemia; J44.9 Chronic obstructive pulmonary disease, unspecified; I13.0 Hypertensive heart and chronic kidney disease with heart failure and stage 1 through stage 4 chronic kidney disease, or unspecified chronic kidney disease; E11.22 Type 2 diabetes mellitus with diabetic chronic kidney disease; N18.9 Chronic kidney disease, unspecified; I50.9 Heart failure, unspecified; F17.210 Nicotine dependence, cigarettes, uncomplicated; Z86.73 Personal history of transient ischemic attack (TIA), and cerebral infarction without residual deficits; Z79.2 Long term (current) use of antibiotics; Z79.899 Other long term (current) drug therapy

== ENCOUNTER 2019-04-14 13:38 | Emergency (ER) | payer OTHER ==
[~2019-04-14] VITALS: Ht 185.4 cm; Wt 82.6 kg
[2019-04-14 13:45] VITALS: BP 138/70
[2019-04-14] MEDS ORDERED: ROBAXIN-750750 MG PO ×2 (16:48→17:34)
== END 2019-04-14 17:30 | disposition home or self-care (01) ==
LOC: ED 13:38
DX: S76.911A Strain of unspecified muscles, fascia and tendons at thigh level, right thigh, initial encounter (principal); K21.9 Gastro-esophageal reflux disease without esophagitis; I25.2 Old myocardial infarction; J44.9 Chronic obstructive pulmonary disease, unspecified; E78.5 Hyperlipidemia, unspecified; E11.22 Type 2 diabetes mellitus with diabetic chronic kidney disease; I13.0 Hypertensive heart and chronic kidney disease with heart failure and stage 1 through stage 4 chronic kidney disease, or unspecified chronic kidney disease; N18.3 Chronic kidney disease, stage 3 (moderate); I50.9 Heart failure, unspecified; E78.1 Pure hyperglyceridemia; F17.210 Nicotine dependence, cigarettes, uncomplicated; Z79.899 Other long term (current) drug therapy; Z79.2 Long term (current) use of antibiotics; Z86.73 Personal history of transient ischemic attack (TIA), and cerebral infarction without residual deficits; Z98.61 Coronary angioplasty status; X58.XXXA Exposure to other specified factors, initial encounter; Y93.89 Activity, other specified; Y92.89 Other specified places as the place of occurrence of the external cause; Y99.8 Other external cause status